=== PATIENT | female | born 1940 ===

== ENCOUNTER 2017-12-31 08:26 | Outpatient (CLI) | payer OTHER ==
[~2017-12-31 08:26] MED LIST: AMLODIPINE BESYL5 MG PO; ATIVAN1 M1 PO; ATORVASTATIN CA20 MG PO; DIOVAN40 MG; INTESTINEX680 MG PO; KETO10TA2 PO; LOSARTAN-HCTZ1 EAC1 PO; METOPROLOL SUCC50 MG; PREDNISONE20 MG PO; VERAPAMIL ER200 MG PO; XARELTO 15MG TAB PO
== END 2017-12-31 19:22 | disposition home or self-care (01) ==
LOC: LAB 08:26
DX: D72.818 Other decreased white blood cell count (principal); D68.59 Other primary thrombophilia; E72.11 Homocystinuria; E72.12 Methylenetetrahydrofolate reductase deficiency; D68.0 Von Willebrand disease; I80.221 Phlebitis and thrombophlebitis of right popliteal vein; E26.89 Other hyperaldosteronism; I73.89 Other specified peripheral vascular diseases; I10 Essential (primary) hypertension; E78.49 Other hyperlipidemia; E55.9 Vitamin D deficiency, unspecified; K90.89 Other intestinal malabsorption; D50.8 Other iron deficiency anemias

== ENCOUNTER 2018-03-26 07:41 | Outpatient (CLI) | payer OTHER | END 2018-03-26 07:48 | disposition home or self-care (01) | LOC: MAMO-SONO 07:41 | DX: Z12.31 Encounter for screening mammogram for malignant neoplasm of breast (principal); Z87.898 Personal history of other specified conditions; N63.10 Unspecified lump in the right breast, unspecified quadrant; D72.818 Other decreased white blood cell count; D68.59 Other primary thrombophilia; E72.11 Homocystinuria; E72.12 Methylenetetrahydrofolate reductase deficiency; D68.0 Von Willebrand disease; I80.221 Phlebitis and thrombophlebitis of right popliteal vein; I26.99 Other pulmonary embolism without acute cor pulmonale; I73.89 Other specified peripheral vascular diseases; I10 Essential (primary) hypertension; E78.5 Hyperlipidemia, unspecified; E55.9 Vitamin D deficiency, unspecified; I87.2 Venous insufficiency (chronic) (peripheral); I70.0 Atherosclerosis of aorta; I67.2 Cerebral atherosclerosis; E78.2 Mixed hyperlipidemia; R73.01 Impaired fasting glucose; E04.1 Nontoxic single thyroid nodule; Q40.1 Congenital hiatus hernia; K42.9 Umbilical hernia without obstruction or gangrene; K57.30 Diverticulosis of large intestine without perforation or abscess without bleeding; K59.09 Other constipation; N39.0 Urinary tract infection, site not specified; D68.52 Prothrombin gene mutation; M26.601 Right temporomandibular joint disorder, unspecified; M26.602 Left temporomandibular joint disorder, unspecified; E04.8 Other specified nontoxic goiter; E03.8 Other specified hypothyroidism; M17.2 Bilateral post-traumatic osteoarthritis of knee; M85.89 Other specified disorders of bone density and structure, multiple sites; M25.561 Pain in right knee; M62.838 Other muscle spasm; R51 Headache; M89.8X0 Other specified disorders of bone, multiple sites; I27.82 Chronic pulmonary embolism; J98.11 Atelectasis; Z68.30 Body mass index [BMI] 30.0-30.9, adult; Z86.718 Personal history of other venous thrombosis and embolism; R82.90 Unspecified abnormal findings in urine ==

== ENCOUNTER → 2018-03-26 | Outpatient (CLI) | payer OTHER | END | disposition home or self-care (01) | LOC: NUCLEAR 09:00 | DX: M71.20 Synovial cyst of popliteal space [Baker], unspecified knee (principal); M85.89 Other specified disorders of bone density and structure, multiple sites; M25.561 Pain in right knee; I10 Essential (primary) hypertension; I87.2 Venous insufficiency (chronic) (peripheral); I70.0 Atherosclerosis of aorta; I67.2 Cerebral atherosclerosis; E78.2 Mixed hyperlipidemia; R73.01 Impaired fasting glucose; E04.1 Nontoxic single thyroid nodule; Q40.1 Congenital hiatus hernia; K42.9 Umbilical hernia without obstruction or gangrene; K59.00 Constipation, unspecified; D68.0 Von Willebrand disease; D68.52 Prothrombin gene mutation; I27.82 Chronic pulmonary embolism; J98.11 Atelectasis | CPT/HCPCS: 78306; 78320; A9503 ==

== ENCOUNTER 2022-02-08 14:50 | Outpatient (CLI) | payer OTHER | END 2022-02-08 15:00 | disposition home or self-care (01) | LOC: PPH VACUNA 14:50 | PROVIDERS: ATTEND Emergency Medicine Pediatric Emergency Medicine | DX: Z23 Encounter for immunization (principal) ==

== ENCOUNTER → 2023-05-20 06:50 | Outpatient (CLI) | payer OTHER ==
[2023-05-20 08:25] LABS: HEMATOCRIT 37.4 % (36.0-45.00); HEMOGLOBIN 12.7 g/dL (12.0-15.00); MEAN CELL VOLUME 88.4 fL (80.00-100.00); MEAN CORPUSCULAR HEMOGLOBIN 29.9 pg (27.00-32.0); MEAN CORPUSCULAR HGB CONC 33.8 g/dl (32.0-36.0); PLATELET COUNT 228 K/uL (150-450); RED BLOOD COUNT 4.24 M/uL (4.00-6.00); RED CELL DISTRIBUTION WIDTH 13.8 % (11.5-14.5)
[2023-05-20 09:00] LABS: ALBUMIN 3.8 gm/dL (3.4-5.0); BILIRUBIN TOTAL 0.42 mg/dL (0.3-1.2); CALCIUM 9.9 mg/dL (8.5-10.1); CREATININE SERUM 1.25 mg/dL (0.55-1.02); GFR 41.13; POTASSIUM 4.34 mEq/L (3.5-5.1); TOTAL PROTEIN 7.8 gm/dL (6.4-8.2)
[2023-05-20 13:35] LABS: FOLIC ACID > 20.00 ng/ml (4.78-20); VITAMIN D3 25 HYDROXY 45.02 ng/ml (30-120)
== END | disposition home or self-care (01) ==
LOC: LAB 06:50
PROVIDERS: ATTEND Internal Medicine Hematology & Oncology
DX: D50.8 Other iron deficiency anemias (principal); I10 Essential (primary) hypertension; R74.02 Elevation of levels of lactic acid dehydrogenase [LDH]; K76.89 Other specified diseases of liver; D51.8 Other vitamin B12 deficiency anemias; E55.9 Vitamin D deficiency, unspecified; C50.919 Malignant neoplasm of unspecified site of unspecified female breast; R97.8 Other abnormal tumor markers; C25.9 Malignant neoplasm of pancreas, unspecified; R97.1 Elevated cancer antigen 125 [CA 125]; D68.01 Von Willebrand disease, type 1; D68.59 Other primary thrombophilia; D72.818 Other decreased white blood cell count; E72.11 Homocystinuria; E72.12 Methylenetetrahydrofolate reductase deficiency; I80.221 Phlebitis and thrombophlebitis of right popliteal vein; I26.99 Other pulmonary embolism without acute cor pulmonale; I73.9 Peripheral vascular disease, unspecified; E78.5 Hyperlipidemia, unspecified

== ENCOUNTER 2024-08-06 08:33 | Outpatient (CLI) | payer OTHER ==
[2024-08-06 09:10] LABS: BASO % 0.9 % (0.1-1.2); EOS # 0.12 (0.04-0.54); EOS % 1.8 % (0.7-7.0); HEMATOCRIT 37.4 % (34.1-44.9); HEMOGLOBIN 12.2 g/dL (11.2-15.7); LYMPH # 2.58 (1.18-3.74); LYMPH % 39.4 % (19.3-53.1); MEAN CORPUSCULAR HEMOGLOBIN 29.6 pg (25.6-32.2); MONO # 0.53 (0.24-0.82); MONO % 8.1 % (4.7-12.5); NEUT # 3.23 (1.56-6.13); NEUT % 49.5 % (34.0-71.1); PLATELET COUNT 208 K/uL (163-369); RED BLOOD COUNT 4.12 M/uL (3.93-5.22); RED CELL DISTRIBUTION WIDTH 13.8 % (11.6-14.4)
[2024-08-06 09:59] LABS: ALBUMIN 3.8 gm/dL (3.4-5.0); BILIRUBIN TOTAL 0.37 mg/dL (0.3-1.2); CALCIUM 9.8 mg/dL (8.5-10.1); CREATININE SERUM 1.2 mg/dL (0.55-1.02); GFR 43.01; GLOBULINA 3.7 G/DL (2.4-3.5); POTASSIUM 4.8 mEq/L (3.5-5.1); TOTAL PROTEIN 7.5 gm/dL (6.4-8.2)
[2024-08-06 12:39] LABS: FOLIC ACID > 20.00 ng/ml (4.78-20); VITAMIN D3 25 HYDROXY 38.06 ng/ml (30-120)
== END 2024-08-06 08:37 | disposition home or self-care (01) ==
LOC: LAB 08:33
PROVIDERS: ATTEND Internal Medicine Hematology & Oncology
DX: D68.01 Von Willebrand disease, type 1 (principal); D68.59 Other primary thrombophilia; D72.818 Other decreased white blood cell count; I80.221 Phlebitis and thrombophlebitis of right popliteal vein; I26.99 Other pulmonary embolism without acute cor pulmonale; I73.9 Peripheral vascular disease, unspecified; I10 Essential (primary) hypertension; E78.5 Hyperlipidemia, unspecified; E55.9 Vitamin D deficiency, unspecified; D50.8 Other iron deficiency anemias; R79.9 Abnormal finding of blood chemistry, unspecified; R74.02 Elevation of levels of lactic acid dehydrogenase [LDH]; K76.89 Other specified diseases of liver; D51.8 Other vitamin B12 deficiency anemias; Z13.29 Encounter for screening for other suspected endocrine disorder